=== PATIENT | male | born 1980 | race Two or more races ===

== ENCOUNTER 2017-01-10 18:24 | Emergency (ER) | payer MEDICAID, OTHER ==
[~2017-01-10] VITALS: Ht 172.7 cm; Wt 72.6 kg
[2017-01-10 20:56] VITALS: BP 136/92
== END 2017-01-10 21:13 | disposition home or self-care (01) ==
LOC: ER 18:27
DX: S13.4XXA Sprain of ligaments of cervical spine, initial encounter (principal); S39.012A Strain of muscle, fascia and tendon of lower back, initial encounter; V47.6XXA Car passenger injured in collision with fixed or stationary object in traffic accident, initial encounter; Y93.89 Activity, other specified; Y99.8 Other external cause status; Y92.488 Other paved roadways as the place of occurrence of the external cause